=== PATIENT | male | born 1965 | race Caucasian/White ===

== ENCOUNTER → 2020-02-22 08:43 | Outpatient (BNVA) | payer BC, SELFPAY | PROVIDERS: PCP Nurse Practitioner Family; Visit Provider Urology | DX: N40.1 Benign prostatic hyperplasia with lower urinary tract symptoms; R30.0 Dysuria; R97.20 Elevated prostate specific antigen [PSA]; R39.12 Poor urinary stream; R39.11 Hesitancy of micturition | CPT/HCPCS: 81001; 84153 ==

== ENCOUNTER → 2020-09-13 11:34 | Outpatient (BNVA) | payer BC, SELFPAY | PROVIDERS: PCP Nurse Practitioner Family; Visit Provider Urology | DX: N40.1 Benign prostatic hyperplasia with lower urinary tract symptoms (principal); R31.29 Other microscopic hematuria | CPT/HCPCS: 81003; 87086 ==

== ENCOUNTER → 2021-01-02 14:00 | Outpatient (BNVA) | payer BC, SELFPAY | PROVIDERS: PCP Nurse Practitioner Family; Visit Provider Urology | DX: R31.29 Other microscopic hematuria (principal); N40.1 Benign prostatic hyperplasia with lower urinary tract symptoms; N30.20 Other chronic cystitis without hematuria; R33.9 Retention of urine, unspecified; R39.11 Hesitancy of micturition | CPT/HCPCS: 81003; 87086 ==

== ENCOUNTER → 2021-04-03 11:02 | Outpatient (BNVA) | payer BC, SELFPAY | PROVIDERS: PCP Nurse Practitioner Family; Visit Provider Urology | DX: N40.1 Benign prostatic hyperplasia with lower urinary tract symptoms (principal); N52.9 Male erectile dysfunction, unspecified; N30.20 Other chronic cystitis without hematuria; R39.11 Hesitancy of micturition | CPT/HCPCS: 81003 ==

== ENCOUNTER → 2021-10-30 10:52 | Outpatient (BNVA) | payer BC, SELFPAY | PROVIDERS: PCP Nurse Practitioner Family; Referring Provider Nurse Practitioner Family; Visit Provider Orthopaedic Surgery | DX: M19.011 Primary osteoarthritis, right shoulder (principal); M25.511 Pain in right shoulder | CPT/HCPCS: 73030 ==

== ENCOUNTER → 2022-03-25 07:55 | Outpatient (BNVA) | payer BC, SELFPAY | PROVIDERS: PCP Nurse Practitioner Family; Visit Provider Urology | DX: N40.1 Benign prostatic hyperplasia with lower urinary tract symptoms (principal); N52.9 Male erectile dysfunction, unspecified; N30.20 Other chronic cystitis without hematuria; R31.29 Other microscopic hematuria; R39.11 Hesitancy of micturition | CPT/HCPCS: 81003 ==

== ENCOUNTER 2022-04-10 14:14 | Observation (INO) | payer BC, SELFPAY ==
[2022-04-05 11:16] VITALS: BMI 32.8
--- NOTE | 2022-04-05 11:52 | ANES.PREANE2 ---
Pre-Anesthetic Assessment Height/Weight: Height 1.8 m Weight 106.594 kg Preop Diagnosis: BPH Operation Date: 04/10/22 08:05 Proposed Procedures p Transurethral Resection Of Prostate(Not Applicable) - Jed Carrington MD s cystoscopy transurethral resection of prostate 89636,N40.1(Not Applicable) - Jed Carrington MD Familial anesthetic complications: None Was Beta Lilia taken within 24 hours: N/A Was Clonidine taken within 24 hours: N/A Social Tobacco and No alcohol Exam alert, oriented x 3, clear to auscultation bilaterally and regular rate & rhythm Airway Submandibular: within normal limits Cervical ROM: within normal limits Mallampati: Class II Dentition: chipped (Chipped upper teeth ) Pulmonary Asthma CV/HEM Denies HTN, CAD, afib/aflutter, blood thinners METS > 4 able to chop and stack wood BPH Hepatic None reported GI None reported Metabolic None reported Musc/skel Osteoarthritis/DJD Neuropsych None reported Anesthetic Plan ASA status: 3 Anesthesia: Anesthesia Evaluation and General Other: We discussed risk and benefits of general anesthesia including PONV, sore throat (sometimes severe), corneal abrasion, positioning and peripheral nerve injuries, life threatening allergic reaction, post operative ICU admission requiring prolonged intubation, aspiration, stroke, heart attack, , and rare incidences of recall. Patient consents to proceed with general anesthesia. Risk of > 500 ml blood loss (7ml/kg in children): No Medications/Allergies Home Medications Medication Instructions Recorded Confirmed Last Taken Type albuterol sulfate 90 mcg/actuation 2 inh inhalation QID PRN sob 02/16/20 04/05/22 Unknown History breath activated powder inhaler sildenafil 100 mg tablet See Rx Instructions .Route 04/03/21 04/05/22 Unknown Rx .COMPLEX sexual activity #20 tabs finasteride 5 mg tablet 5 mg PO QDAY #90 tabs 02/28/22 04/05/22 Unknown Rx tamsulosin 0.4 mg capsule 0.4 mg PO BID #180 caps 03/07/22 04/05/22 Unknown Rx tadalafil 20 mg tablet (Cialis) 20 mg PO .prn #20 tabs 03/28/22 04/05/22 Unknown Rx Allergies Allergy/AdvReac Type Severity Reaction Status Date / Time No Known Allergies Allergy Verified 04/05/22 11:14 PFSH Anesthesia Medical History Asthma BPH loc w urin obs/LUTS Erectile dysfunction Microscopic hematuria Urinary hesitancy Surgical History History of back surgery Hx of arthroscopic knee surgery Hx of hernia repair Hx of rotator cuff surgery Family History Mother Cancer BREAST CANCER Father , at age 52 CAD (coronary artery disease) Social History Smoking and tobacco status: current every day smoker Alcohol intake: current Alcohol intake frequency: holidays/special occasions only Adopted: No Caregiver/support person: No Lives independently: Yes Marital status: / Current occupational status: employed History of recent travel: No Data Anesthesia Cardiac Studies: No Data to Display
[2022-04-10] VITALS (21 sets, daily range): BP systolic 100–136; BP diastolic 55–78; PULSE 62–82; RESP 12–18; TEMP 36.2–36.8; O2SAT 93–98
--- NOTE | 2022-04-10 05:52 | W.PM.OPSUD ---
Surgery/Procedure H&P Update DATE OF PROCEDURE: April 10, 2022 DATE H&P PERFORMED: 03/21/22 H&P UPDATE INFORMATION: I have reviewed H&P completed within last 30 days, I have examined patient prior to procedure, No changes to prior documentation and H&P is in [facility] [place] [facility] EMR on date indicated PREOP DIAGNOSIS: BPH PLANNED PROCEDURE: Operation Date: 04/10/22 08:05 Proposed Procedures p Transurethral Resection Of Prostate(Not Applicable) - Jed Carrington MD s cystoscopy transurethral resection of prostate 13814,N40.1(Not Applicable) - Jed Carrington MD
--- NOTE | 2022-04-10 07:09 | P.ANESUD_ITS ---
Pre-Anesthetic Update Pre-Anesthetic Assessment: Date of Surgery/Procedure: 04/10/22 Preop Mena gnosis: BPH with obstruction Proposed Procedure: Operation Date: 04/10/22 08:05 Proposed Procedures p Transurethral Resection Of Prostate(Not Applicable) - Jed Carrington MD s cystoscopy transurethral resection of prostate 60603,N40.1(Not Applicable) - Jed Carrington MD Any changes to Pre-Anesthetic Assessment?: No Last Intake: Intake Last Liquid Date 04/09/22 Last Liquid Time 22:30 Last Solid Date 04/09/22 Last Solid Time 22:30 Vitals: Temperature 97.2 F L 04/10/22 06:43 Temperature Source Temporal Artery S can 04/10/22 06:43 Pulse Rate 66 04/10/22 06:43 Respiratory Rate 16 04/10/22 06:43 Blood Pressure 135/76 04/10/22 06:43 Blood Pressure Fide n 95 04/10/22 06:43 Pulse Oximetry 95 04/10/22 06:43 Oxygen Delivery Me thod 04/10/22 07:06 Exam: Pre-Anes Outpt Exam: alert, oriented x 3, clear to auscultation bilaterally and regular rate & rhythm Cardiac Studies: No Data to Display
[2022-04-10] MEDS: sodium chloride 0.9% 1,000 ML 30 ML IV (07:10)
[2022-04-10 07:14] LABS: Basophils % 0.4 %; Eosinophils # 0.1 10^3/uL (0.0-0.8); Eosinophils % 1.5 %; Hematocrit 44.8 % (42.0-52.0); Lymphocytes % 24.4 %; Mean Corpuscular HGB Conc 33.5 g/dL (30.0-36.0); Mean Corpuscular Hemoglobin 33.5 pg (28.0-34.0); Mean Platelet Volume 8.8 fL (7.4-10.4); Monocytes # 0.7 10^3/uL (0.2-0.9); Monocytes % 8.1 %; Neutrophils # 5.41 10^3/uL (1.8-7.7); Neutrophils % 65.5 %; Nucleated Red Blood Cells % 0 %; Platelet Count 284 10^3/cmm (130-400); Red Blood Count 4.48 10^6/uL (4.1-5.3); Red Cell Distribution Width 13.8 % (12.1-15.1); White Blood Count 8.3 10^3/uL (4.0-10.0)
[2022-04-10] MEDS: levofloxacin-dextrose 5 % 500 MG/100 ML PREMIX 100 MG IV (08:42)
--- NOTE | 2022-04-10 11:00 | PM.OP ---
Operative Report Date of procedure: April 10, 2022 Pre-op diagnosis: BPH with obstruction Post-op diagnosis: BPH with obstruction Procedure done: 1. Cystoscopy, transurethral vaporization/resection prostate gland Specimens removed/disposition: Prostate chips, tax compliance representative sampling Pathology: Prostate chips, tax compliance representative sampling Surgeon: Zeb Estimated blood loss: Minimal Urine output: Not measured Complications: None Findings: Anesthesia: General Condition: Stable Disposition: PACU Intraoperative findings: Trilobar enlargement of the prostate. Large capacity bladder with large right posterior diverticulum Evidence of chronic cystitis with some cystica changes. Will need discharge on antibiotics. Brief History: Milan is a very pleasant 56-year-old white male with progressive longstanding bladder outlet obstructive symptoms with trabeculation of the bladder and a large posterior diverticulum noted on cystoscopy along with trilobar enlargement of the prostate with intravesical protrusion. He had been on maximal medical therapy with some improvement but not durable. He ultimately elected to proceed with surgical intervention. Procedure: After routine preoperative evaluation examination and obtaining of informed consent he was taken to the operating suite on 04/10/2022 where general anesthesia was administered without difficulty after appropriate timeout was performed, SCDs confirmed to be functioning, preoperative antibiotics administered, beta-juan pablo protocol confirmed. Prepped and draped in usual sterile fashion in dorsolithotomy position paying careful attention to avoiding pressure points. 21 Kazakh cystoscope with 30 degree lens was introduced into the urethra meatus and advanced into the bladder under videoscopy. Bladder was systematically examined. He had a large posterior diverticulum more to the right. Moderately trabeculated bladder and some signs of CYSTITIS CYSTICA. His urine looked cloudy. The urethra was then dilated with [place] sounds but there was a small false passage that occurred with passage of the first sound and so at that point calibration was conducted with the 23 then 25 Kazakh cystoscope under direct vision avoiding the small anterior false passage from the sound in the bulbar urethra. There was plenty of leeway passing the cystoscopes. The distal urethra, distal to the false passage was calibrated with [place] sounds and easily accommodated 30 Kazakh. 2% lidocaine jelly was instilled into the urethra than the 25 Kazakh continuous-flow resectoscope sheath with visual obturator in place was easily advanced into the bladder. The gyrus bipolar system was utilized for fulguration and resection. Initially the button probe was utilized for vaporization. The orifices were confirmed to be well away from the bladder neck and circumferential vaporization of the bladder neck was conducted and then extended on both lateral lobes, anteriorly, and posteriorly out to but not distal to the verumontanum. Approximately 60 to 70% of the tissue was vaporized. The super loop was then utilized to complete resection. Care was made to avoid strain distally to the verumontanum and staying well away from both orifices which was confirmed at the completion procedure. The chips were all evacuated from the bladder. Some of the chips had migrated into the diverticulum and this was confirmed to be clear at the completion. Hemostasis was visually confirmed with the irrigation off. The scope was removed. There a false passage was oozing but not severely. A 20 Kazakh three-way Albarado catheter with 30 cc placed in the balloon was easily advanced into the bladder with good function. Balloon was inflated placed to light irrigation. He did have some oozing from around the catheter which was expected given the false passage but I fully anticipate this to cease with conservative management/tamponade from the catheter. He tolerated the procedure well. Was awakened in the operating room and returned to the recovery room in stable condition. PLANS: 1. Will admit to observation status. 2. Plan to keep the catheter in and discharge to allow further healing of the urethra before removal.
--- NOTE | 2022-04-10 12:07 | SUR.PHASEII ---
1200 PT AWAKE ALERT TALKATIVE TAKING COFFEE AND CRACKERS, PT REQUEST PAIN MED FOR PAIN TO URETHRAL AREA OF 3/10 SEE MED ORDERED FOR FLOOR. CBI IN FUSING SLOWLY, URINE CLEAR.
--- NOTE | 2022-04-10 12:11 | SUR.PHASEII ---
PT AWAKE TALKATIVE, WAITING ON PHARMACY FOR PAIN MED PT DRINKING COFFEE , SR UP X 2 BED LOCKED AND CALL LIGHT WITHIN REACH.
[2022-04-10] MEDS: HYDROcodone-acetaminophen 5-325 mg Tablet 1 TAB PO (12:15)
--- NOTE | 2022-04-10 12:36 | SUR.PHASEII ---
NEW CBI BAG UP PT REQUESTS TO GET UP TO BSC , PT CARE ASSUMED BY Vianca THOMAS RN.
--- NOTE | 2022-04-10 13:51 | ANE.PACU2 ---
Inpatient post-anesthesia follow up: Airway intact: Yes Vital signs: Temperature 98.2 F Pulse Rate 68 Respiratory Rate 18 Blood Pressure 136/74 Pulse Oximetry 98 Oxygen Delivery Me thod Room Air Oxygen Flow Rate Fraction of Inspir ed Oxygen Hydration adequate: Yes Nausea and vomiting: No Pain level: 1 Mental status: Baseline
[2022-04-10] MEDS: dextrose 5%-ns + KCl 20 20 MEQ/1,000 ML BAG 100 MEQ IV (14:55)
[2022-04-10] MEDS: tamsulosin 0.4 mg Capsule PO (18:10)
[2022-04-10] MEDS: docusate sodium 100 mg Capsule PO (18:10)
--- NOTE | 2022-04-10 18:14 | PC.NURSE ---
PATIENT HAS DONE WELL SINCE ARRIVING FROM THE OR. BLOOD OOZING FROM PATIENT'S PENIS HAS DECREASED GREATLY. CBI RUNNING AT A VERY SLOW DRIP. PATIENT HAS HAD 1500ML OF CBI AND 2000ML OF CLEAR YELLOW OUTPUT. 500ML TOTAL OF URINE OUTPUT. NO DISTENTION NOTED. PATIENT HAS NO COMPLAINTS OF PAIN. CURRENTLY RESTING IN BED TALKING ON THE PHONE.
[2022-04-11] VITALS: BP 120/67; PULSE 72; RESP 18; TEMP 36.5; O2SAT 94
[2022-04-11] MEDS: famotidine 20 mg Tablet PO (00:14)
--- NOTE | 2022-04-11 00:42 | PC.NURSE ---
Patient stated that stomach was upset and requested antacid. Order given by Dr Medeiros for PO pepcid. Patient took pepcid, but afterward administration stated, I want a real antacid, not a PPI. I want it to work now, not tomorrow. Dr. Medeiros contacted about patient request for antacid, response was wait. Patient stated, All I want is a damn antacid.
[2022-04-11] MEDS: dextrose 5%-ns + KCl 20 20 MEQ/1,000 ML BAG 100 MEQ IV (01:35)
[2022-04-11 04:00] VITALS: BP 91/50; PULSE 56; RESP 16; TEMP 36.6; O2SAT 94
--- NOTE | 2022-04-11 05:49 | PM.DCS ---
Discharge Providers Date of Admission: 04/10/22 14:14 Date of Discharge: April 11, 2022 Attending Provider at Admission: Jed Carrington MD Attending Provider at Discharge: Jed Carrington MD Consults: None Primary Care Provider: Cody Carolina NP Diagnoses at Discharge Discharge Diagnosis (1) BPH loc w urin obs/LUTS: Status: Acute (2) Chronic cystitis: Status: Acute Reason for Visit Reason for Visit: benign prostatic hyperplasia w/lower urinary tract Brief History: Longstanding progressive bladder outlet obstructive symptoms with failure of medical management alone. Ultimately patient chose surgical intervention with hopes of substantial improvement in voiding. Hospital Course Hospital Course Admitted on the day of the procedure which went well. He had a large prostate. Prostatic fossa was wide open at the completion procedure. Did have some changes of CHRONIC CYSTITIS evident on bladder wall for that reason was maintained on antibiotics throughout his hospital stay. Intraoperatively he had mild urethral dilation trauma at that reason it was decided to leave the Albarado catheter in until 04/15/2022 for voiding trial in my office. He was discharged with Albarado catheter in place with leg bag. Discharge condition was stable. We reviewed perioperative limitations and expectations. Encouraged him to stay off work for least a week or 2. Physical Exam Narrative: Alert oriented no acute distress No labored respirations Abdomen is soft. Urine is clear. No further periurethral catheter bleeding Genital exam normal. Urinary Catheter Management: 3-way Urethral CBI: Cath Placed During This Visit: yes Reason for Continuing Indwelling Catheter: Acute Urinary Retention or Obstruction Urinary Catheter Date of Insertion: 04/10/22 Urinary Catheter Time of Insertion: 09:42 Discharge Data Studies Completed and Pending Pending at discharge Category Date Time Status Pathology: Surgical [PTH] Routine Pth 04/10/22 09:59 Received Laboratory Results WBC 8.3 10^3/uL (4.0-10.0) 04/10/22 07:02 RBC 4.48 10^6/uL (4.1-5.3) 04/10/22 07:02 Hgb 15.0 g/dL (11.7-16.6) 04/10/22 07:02 Hct 44.8 % (42.0-52.0) 04/10/22 07:02 MCV 100.0 fl (80-94) H 04/10/22 07:02 MCH 33.5 pg (28.0-34.0) 04/10/22 07:02 MCHC 33.5 g/dL (30.0-36.0) 04/10/22 07:02 RDW 13.8 % (12.1-15.1) 04/10/22 07:02 Plt Count 284 10^3/cmm (130-400) 04/10/22 07:02 MPV 8.8 fL (7.4-10.4) 04/10/22 07:02 Neut % (Auto) 65.5 % 04/10/22 07:02 Lymph % (Auto) 24.4 % 04/10/22 07:02 Cassia % (Auto) 8.1 % 04/10/22 07:02 Eos % (Auto) 1.5 % 04/10/22 07:02 Baso % (Auto) 0.4 % 04/10/22 07:02 Neut # (Auto) 5.41 10^3/uL (1.8-7.7) 04/10/22 07:02 Lymph # (Auto) 2.0 10^3/uL (0.8-4.8) 04/10/22 07:02 Cassia # (Auto) 0.7 10^3/uL (0.2-0.9) 04/10/22 07:02 Eos # (Auto) 0.1 10^3/uL (0.0-0.8) 04/10/22 07:02 Baso # (Auto) 0.0 10^3/uL (0.0-0.1) 04/10/22 07:02 Nucleated RBC % (auto) 0 % 04/10/22 07:02 Nucleated RBCs # 0.0 /100WBC 04/10/22 07:02 Sodium Cancelled 04/10/22 07:02 Potassium Cancelled 04/10/22 07:02 Chloride Cancelled 04/10/22 07:02 Carbon Dioxide Cancelled 04/10/22 07:02 Anion Gap Cancelled 04/10/22 07:02 BUN Cancelled 04/10/22 07:02 Creatinine Cancelled 04/10/22 07:02 GFR Calculation Cancelled 04/10/22 07:02 Glucose Cancelled 04/10/22 07:02 Calculated Osmolality Cancelled 04/10/22 07:02 Calcium Cancelled 04/10/22 07:02 Total Bilirubin Cancelled 04/10/22 07:02 AST Cancelled 04/10/22 07:02 ALT Cancelled 04/10/22 07:02 Alkaline Phosphatase Cancelled 04/10/22 07:02 Total Protein Cancelled 04/10/22 07:02 Albumin Cancelled 04/10/22 07:02 Globulin Cancelled 04/10/22 07:02 Procedures Performed Cystoscopy, transurethral section/vaporization of prostate. Vitals Last Vital Signs Temp 97.9 F 04/11/22 04:00 Pulse 56 L 04/11/22 04:00 Resp 16 04/11/22 04:00 BP 91/50 04/11/22 04:00 Pulse Ox 94 04/11/22 04:00 O2 Del Method 04/11/22 04:00 Discharge Plan Discharge Patient Disposition: Home Condition: Stable Prescriptions: New levofloxacin 500 mg tablet 500 mg PO DAILY Qty: 10 0RF Continued albuterol sulfate 90 mcg/actuation aerosol powdr breath activated 2 inh INHALATION QID PRN (Reason: sob) finasteride 5 mg tablet 5 mg PO QDAY Qty: 90 3RF tamsulosin 0.4 mg capsule 0.4 mg PO BID Qty: 180 3RF tadalafil [Cialis] 20 mg tablet 20 mg PO .prn Qty: 20 12RF Rx Instructions: take one tablet 1 hour before intercourse NO NITROGLYCERIN Discharge Orders: Discharge Order (Routine); Ordered 04/11/22 Ordered By: Jed Carrington Referrals: Jed Carrington MD [Physician] - 04/15/22 (voiding trial no SCIC planned) Discharge Diet: Usual diet Discharge Activity: Limit activity as instructed Activity Restrictions/Additional Instructions: 1. We will discharged with Albarado catheter in place and remove it on Friday the in my office. 2. This will allow more healing prior to voiding trial. 3. For the short-term continue the FINASTERIDE and tamsulosin as we discussed. 4. There was evidence of an infection in your bladder and for that reason you will be discharged on an antibiotic for about 10 days. Discharge Attestations Time Spent in Discharge Care*: less than 30 min Quality Metrics Clinical Quality Measures [ No reported AMI, CVA or VTE this stay] Coding Level of Care Code Acute Chg FW DC note Diagnoses BPH loc w urin obs/LUTS N40.1 Chronic cystitis N30.20
[2022-04-11] MEDS: levoFLOXacin 500 mg Tablet PO (07:13)
[2022-04-11 07:29] VITALS: BP 107/63; PULSE 69; RESP 16; TEMP 36.7; O2SAT 94
[2022-04-11] MEDS: docusate sodium 100 mg Capsule PO (08:08)
[2022-04-11] MEDS: tamsulosin 0.4 mg Capsule PO (08:08)
[2022-04-11] MEDS: finasteride 5 mg Tablet PO (08:08)
[2022-04-11 10:57] VITALS: BP 107/63; PULSE 69; RESP 16; TEMP 36.7; O2SAT 94
== END 2022-04-11 10:00 | disposition home or self-care (01) ==
LOC: MEDSURG 14:14
PROVIDERS: Admitting Provider Urology; PCP Nurse Practitioner Family; Visit Provider Urology
PROC: 0VT08ZZ Resection of Prostate, Via Natural or Artificial Opening Endoscopic (ICD-10-PCS; CPT 52601; principal; 2022-04-10 07:55)
PROC: 0TJB8ZZ Inspection of Bladder, Via Natural or Artificial Opening Endoscopic (ICD-10-PCS; CPT 52000; 2022-04-10 07:55)
DX: N40.1 Benign prostatic hyperplasia with lower urinary tract symptoms (principal); N13.8 Other obstructive and reflux uropathy; N30.20 Other chronic cystitis without hematuria; F17.210 Nicotine dependence, cigarettes, uncomplicated
CPT/HCPCS: 52601; 85025; 88305; G0378; J0330; J1100; J1170; J1956; J2250; J2405; J2704; J3010; J3490; J7030

== ENCOUNTER → 2022-05-20 13:43 | Outpatient (BNVA) | payer BC, SELFPAY | PROVIDERS: PCP Nurse Practitioner Family; Visit Provider Urology | DX: N40.1 Benign prostatic hyperplasia with lower urinary tract symptoms (principal); N30.20 Other chronic cystitis without hematuria; N52.9 Male erectile dysfunction, unspecified | CPT/HCPCS: 81003; 87077; 87086; 87186 ==

== ENCOUNTER 2024-01-02 13:04 | Emergency (ER) | payer BC, SELFPAY ==
[2024-01-02 13:19] VITALS: BP 131/79; PULSE 78; RESP 18; TEMP 36.6; O2SAT 95; BMI 34.8
--- NOTE | 2024-01-02 13:29 | XRR_ITS ---
PROCEDURE INFORMATION: Exam: XR Right Shoulder Exam date and time: 01/02/2024 1:33 PM Age: 58 years old Clinical indication: Injury or trauma; Fall; Blunt trauma (contusions or hematomas); Shoulder; Right TECHNIQUE: Imaging protocol: Radiologic exam of the right shoulder. Views: 2 or more views. COMPARISON: CR XR shoulder RT min 2V* [id number] 10/30/2021 10:56 AM FINDINGS: Bones/joints: Moderate/severe osteoarthritis glenohumeral and acromioclavicular joint with ancillary evidence favoring chronic rotator cuff injury. No acute fracture/dislocation. Soft tissues: Normal. XR/XR shoulder RT min 2V* [id number] IMPRESSION: No acute findings.
--- NOTE | 2024-01-02 13:29 | XRR_ITS ---
PROCEDURE INFORMATION: Exam: XR Right Humerus Exam date and time: 01/02/2024 1:33 PM Age: 58 years old Clinical indication: Injury or trauma; Fall; Blunt trauma (contusions or hematomas); Arm, upper; Right TECHNIQUE: Imaging protocol: Radiologic exam of the right humerus. Views: 2 or more views. COMPARISON: CR XR shoulder RT min 2V* [id number] 01/02/2024 1:33 PM FINDINGS: Bones/joints: Moderate to severe osteoarthritis acromioclavicular and glenohumeral joints with additional chronic rotator cuff injury. Moderate osteoarthritis elbow joint with a large olecranon osteophyte. No acute fracture/dislocation. Soft tissues: Chronic soft tissue calcification dorsal forearm. No acute soft tissue findings. XR/[place] [id number] IMPRESSION: No acute findings.
--- NOTE | 2024-01-02 14:40 | W.ED.UPPEXIN ---
HPI - Extremity Injury (Upper) General: Chief Complaint: Extremity Injury, Upper Stated Complaint: right arm pain pulled muscle Time Seen by Provider: 01/02/24 14:32 Source: patient Mode of arrival: ambulatory Limitations: no limitations History of Present Illness: Patient is a 58-year-old male presents to ED today for evaluation of a right bicep injury that he sustained yesterday after his large brother accidentally fell onto him causing him to land onto his outstretched arm. Patient reportedly heard a pop and since then has noticed swelling surrounding his right bicep. He states the muscle does not seem to be working right . MD complaint: injury to: right and arm Onset (ago): day(s) (yesterday) Other Extremity Injury: Right: arm Other injuries: none Handedness: right Place: home Severity: moderate Relieving factors: immobilization Exacerbating factors: movement of extremity Context: fall Associated symptoms: Reports no associated symptoms Review of Systems Musc: Reports: extremity pain and extremity swelling; Denies: joint pain or joint swelling Neuro: Denies: numbness in extremities or sensory changes PFSH ED PFSH: Medical History Erectile dysfunction Microscopic hematuria Asthma Urinary hesitancy BPH loc w urin obs/LUTS Surgical History S/P TURP March 2022 History of back surgery Hx of rotator cuff surgery Hx of arthroscopic knee surgery Hx of hernia repair Family History Mother Cancer BREAST CANCER Father , at age 52 CAD (coronary artery disease) Social History Smoking and tobacco/nicotine status: current every day tobacco/nicotine user Alcohol intake: current Alcohol intake frequency: holidays/special occasions only Substance/Drug Use: unknown Adopted: No Caregiver/support person: No Lives independently: Yes Marital status: / Current occupational status: employed Physical Exam Const: COMMON NORMALS: no acute distress, patient oriented x3, no limitations, healthy appearing, alert and well nourished Extremity: COMMON NORMALS: capillary refill normal and no clubbing, cyanosis or edema GENERAL: Yes normal exam except as noted RIGHT UPPER EXTREMITY: Yes shoulder joint (normal) Right shoulder: Yes Right shoulder joint neurovascular exam (normal) and Yes upper arm (edema/ecchymosis overlying R bicep muscle) Right upper arm: Yes palpation (TTP distal bicep tendon) and Yes neurovascular exam (normal) Neuro: COMMON NORMALS: patient oriented x3, moves all extremities, no focal motor deficits and no sensory deficits noted SENSORIUM/ORIENTATION: Yes alert Course Vital Signs: Vital signs: Vital Signs Temperature 97.9 F 01/02/24 13:19 Pulse Rate 78 01/02/24 13:19 Respiratory Rate 18 01/02/24 13:19 Blood Pressure 131/79 01/02/24 13:19 Pulse Oximetry 95 01/02/24 13:19 Oxygen Delivery Me thod Room Air 01/02/24 13:19 MDM - Extremity Injury (Upper) Medical Decision Making XRs ordered from triage negative. Concern for bicep rupture based on history/clinical exam. Will refer to ortho. Medical Records I reviewed the patient's medical records. Lab Data Radiology Impressions Humerus X-Ray 01/02/24 13:29 IMPRESSION: No acute findings. Shoulder X-Ray 01/02/24 13:29 IMPRESSION: No acute findings. All radiology interpretation(s) finalized by discharge Discharge Plan Discharge Patient Disposition: Home Clinical Impression: Rupture of right biceps tendon Qualifiers: Encounter type: initial encounter Qualified Code(s): S46.211A - Strain of muscle, fascia and tendon of other parts of biceps, right arm, initial encounter Condition: Stable Prescriptions: No Action albuterol sulfate 90 mcg/actuation aerosol powdr breath activated 2 inh INHALATION QID PRN (Reason: sob) hydrocodone-acetaminophen 5-325 mg tablet 1 tab PO Q8H PRN (Reason: pain) 5 Days Qty: 15 0RF finasteride 5 mg tablet 5 mg PO QDAY Qty: 90 3RF tadalafil [Cialis] 20 mg tablet 20 mg PO .prn Qty: 20 12RF Rx Instructions: take one tablet 1 hour before intercourse NO NITROGLYCERIN methenamine hippurate 1 gram tablet 1 g PO BID Qty: 180 3RF Discharge Orders: Discharge ED (Routine); Ordered 01/02/24 Ordered By: Ana Henriquez Referrals: Cody Carolina NP [Primary Care Provider] - Patient Instructions: Biceps Tendon Rupture Activity Restrictions/Additional Instructions: As we discussed case management should reach out to you later today/early next week to help set you up with your follow-up orthopedic appointment for further evaluation. Coding Level of Care Code ED Treasury Consultant for Ariadne Crawford
[2024-01-02 15:15] VITALS: PULSE 76; RESP 16; O2SAT 97
--- NOTE | 2024-01-05 09:23 | DCPLANNER ---
Message sent to Ortho for follow up on Possible bicep rupture-
== END 2024-01-02 15:15 | disposition home or self-care (01) ==
PROVIDERS: Emergency Provider Physician Assistant; PCP Nurse Practitioner Family
DX: S46.211A Strain of muscle, fascia and tendon of other parts of biceps, right arm, initial encounter (principal); J45.909 Unspecified asthma, uncomplicated; F17.210 Nicotine dependence, cigarettes, uncomplicated; Z79.899 Other long term (current) drug therapy; W19.XXXA Unspecified fall, initial encounter
CPT/HCPCS: 73030; 73060; 99283

== ENCOUNTER 2024-01-26 09:49 | Outpatient (CLI) | payer BC, SELFPAY ==
--- NOTE | 2024-01-26 11:00 | MR_ITS ---
WS: [id number] MRI RIGHT SHOULDER HISTORY: right shoulder bicep tendon rupture/rotator cuff injury COMPARISON: 01/23/2013 TECHNIQUE: Multiplanar sequences of the shoulder joint are submitted. Micrometallic artifacts are noted throughout the soft tissues of the RIGHT shoulder from prior repair . Moderate AC joint arthritis. Narrowing of the AC joint with edema in the capsule and mild encroachmen t upon the supraspinatus muscle and tendon. Mild downsloping of the acromion. Osteophyte along the in ferior surface of the acromion contacting the supraspinatus. No os acromion. Biceps tendon is not екатерина ntified in the bicipital groove. Biceps tendon was present in the bicipital groove on 08/26/2012. Ther e does appear to be at least subluxation of the tendon. Moderate osteophytic ridging of the humeral head and glenoid. Moderate size joint effusion surroundin g the humeral head extending into the axillary recess. Mild subscapularis and supraspinatus atrophy w ith a small amount of edema. There is a large fluid gap in the supraspinatus tendon directly over the humeral head consistent with a tear. The distal tendon is identified is very thin caliber with thinning. Fissuring along the burs al and articular surfaces of the tendon. Subscapularis tendon is not identified distally. There is ma rked narrowing of the coracohumeral interval. Tendon appears retracted. Infraspinatus tendon is intac t. Teres minor is intact. Small subcortical cyst in the posterior glenoid near the labrum. No definite labral tears. There is d egeneration within the labrum. MR/MR shoulder RT wo con* [id number] IMPRESSION: 1. Moderate AC joint arthritis with encroachment upon the supraspinatus. 2. Biceps tendon is no longer present in the bicipital groove. There is sublux ation of the biceps tendon. 3. Osteophytic ridging surrounding the humeral head and glenoid. 4. Moderate size fluid gap supraspinatus tendon directly over the humeral head . Consistent with a full-thickness tear. The distal tendon is thinned with surf david fraying and irregularity. 5. Complete tear subscapularis tendon with retraction. Marked narrowing of the coracohumeral interval. The subscapularis tendon is not identified in the jazmyne cohumeral interval. 6. Mild supraspinatus and subscapularis atrophy. 7. Prior shoulder surgery. Numerous micrometallic artifacts are noted from the prior surgery.
== END 2024-01-26 09:50 | disposition home or self-care (01) ==
LOC: RAD 09:51
PROVIDERS: PCP Nurse Practitioner Family; Visit Provider Student in an Organized Health Care Education/Training Program
DX: S46.011A Strain of muscle(s) and tendon(s) of the rotator cuff of right shoulder, initial encounter (principal); M19.011 Primary osteoarthritis, right shoulder; M25.711 Osteophyte, right shoulder; M85.611 Other cyst of bone, right shoulder
CPT/HCPCS: 73221

== ENCOUNTER 2024-11-05 11:46 | Outpatient (CLI) | payer OTHER, SELFPAY ==
--- NOTE | 2024-11-05 11:48 | CT_ITS ---
WS: [id number] LDCT LUNG CANCER SCREENING TECHNIQUE: Noncontrast CT of the chest with coronal and sagittal reformatted images. CLINICAL INFORMATION: NICOTINE DEPENDENCE,CIGARETTES COMPARISON: None. DLP: 123.47 mGy.cm DIvol: Mean CTDIvol: 2.50 (mGy) All CT scans at [facility] use at least one of these dose optimization techniques: automated exposure control; mA and/or kV adjustment per patient size (includes targeted exams where dose is matched to clinical indication); or iterative reconstruction. FINDINGS: A few small subcentimeter nodules in the upper lobes. 4 mm nodule RIGHT lower lobe along the diaphragm. Normal caliber thoracic aorta. No mediastinal or hilar lymphadenopathy. No axillary lymphadenopathy. Adrenal glands are normal. Ankylosis thoracic spine. CT/CT lung screening [id number] IMPRESSION: LUNG-RADS: 2-Benign Appearance or Behavior FOLLOW UP: 12 Month: Continue annual screening with LDCT
== END 2024-11-05 11:47 | disposition home or self-care (01) ==
PROVIDERS: PCP Nurse Practitioner Family; Visit Provider Family Medicine
DX: Z12.2 Encounter for screening for malignant neoplasm of respiratory organs (principal); F17.210 Nicotine dependence, cigarettes, uncomplicated; R91.8 Other nonspecific abnormal finding of lung field; M43.24 Fusion of spine, thoracic region
CPT/HCPCS: 71271

== ENCOUNTER → 2025-03-29 13:32 | Outpatient (BNVA) | payer BC, SELFPAY | PROVIDERS: PCP Nurse Practitioner Family; Visit Provider Podiatrist Foot & Ankle Surgery | DX: M76.62 Achilles tendinitis, left leg (principal) | CPT/HCPCS: 73610 ==

== ENCOUNTER 2025-04-13 08:53 | Outpatient (RCR) | payer BC, SELFPAY | END 2025-04-29 23:59 | disposition home or self-care (01) | LOC: SPT 08:53 | PROVIDERS: Visit Provider Podiatrist Foot & Ankle Surgery | DX: M76.62 Achilles tendinitis, left leg (principal) | CPT/HCPCS: 97110; 97140; 97161 ==

== ENCOUNTER 2025-05-17 09:25 | Outpatient (CLI) | payer BC, SELFPAY ==
--- NOTE | 2025-05-17 09:30 | MR_ITS ---
WS: [id number] MRI LEFT ANKLE WITHOUT CONTRAST. COMPARISON: Radiograph 03/29/2025 Multiplanar, multisequence imaging is performed without contrast. History: Painful bone spur. Degenerative enthesopathies are noted at the origin of the plantar fascia and at the insertion of the Achilles tendon. Plantar fascial aponeurosis spur measures 7.6 mm. Distal Achilles insertion site enthesopathy measures 11 mm. No significant fluid or thickening of the plantar fascia. No edema along the plantar calcaneus. Mild thickening of the distal Achilles tendon near the insertion site of the calcaneus. There is a split tear centrally in the distal Achilles tendon. There is additional tendinopathy and fluid surrounding the tendon. Small amount of fluid in the retrocalcaneal bursa. There is edema in the posterior calcaneus. No significant Yvonne deformity. Large os trigonum. Osteochondral defect in the lateral talar dome measures 4.2 mm. Moderate narrowing of the tibiotalar joint. There is a small amount of edema in the distal fibula. Peroneal tendons are intact. Intermediate signal in the peroneal brevis but no obvious full-thickness tear. The posterior tibialis tendon, flexor hallucis longus and flexor digitorum longus tendons are intact. Anterior tibialis tendon is normal. No widening of the interosseous distance. Anterior and posterior tibiofibular ligaments are intact. Small caliber anterior talofibular ligament. Posterior talofibular ligament is normal. Degenerative changes in the midfoot. Narrowing of the intertarsal articulations and osteophytes. There is a small amount of edema in the intermediate and lateral cuneiforms. There is a small cyst in the sinus Tarsi. Small caliber calcaneofibular ligament. Intermediate signal in the tibiospring ligament. MR/MR ankle LT wo con* [id number] IMPRESSION: 1. Plantar fascia enthesopathy at the origin measures 7.6 mm. No evidence for acute plantar fasciitis. 2. Enthesopathy at the distal Achilles tendon measures 11 mm with a adjacent e nthesitis. 3. Split tear in the distal Achilles tendon and adjacent tendinopathy. 4. Edema in the posterior calcaneus and mild retrocalcaneal bursitis. 5. Osteochondral defect in the lateral talar dome, 4.2 mm. 6. Degenerative changes in the midfoot and at the ankle. 7. No acute tendon or ligament tears identified.
== END 2025-05-17 09:26 | disposition home or self-care (01) ==
LOC: RAD 09:27
PROVIDERS: PCP Podiatrist Foot & Ankle Surgery; Visit Provider Podiatrist Foot & Ankle Surgery
DX: M76.62 Achilles tendinitis, left leg (principal); M77.8 Other enthesopathies, not elsewhere classified; S86.012A Strain of left Achilles tendon, initial encounter; X58.XXXA Exposure to other specified factors, initial encounter; R60.0 Localized edema; M19.072 Primary osteoarthritis, left ankle and foot; R93.6 Abnormal findings on diagnostic imaging of limbs; M67.874 Other specified disorders of tendon, left ankle and foot; M89.8X7 Other specified disorders of bone, ankle and foot
CPT/HCPCS: 73721

== ENCOUNTER → 2025-05-31 09:22 | Outpatient (BNVA) | payer BC, SELFPAY | PROVIDERS: PCP Podiatrist Foot & Ankle Surgery; Visit Provider Podiatrist Foot & Ankle Surgery | DX: M76.62 Achilles tendinitis, left leg (principal); M21.612 Bunion of left foot; M92.62 Juvenile osteochondrosis of tarsus, left ankle; M20.22 Hallux rigidus, left foot | CPT/HCPCS: 73630 ==

== ENCOUNTER 2025-06-17 10:40 | Day surgery (SDC) | payer BC, SELFPAY ==
[2025-06-17] VITALS (14 sets, daily range): BP systolic 91–130; BP diastolic 44–83; PULSE 54–95; RESP 16–18; TEMP 36.2–37.2; O2SAT 93–99; BMI 32.8
--- NOTE | 2025-06-17 10:21 | ANES.PREANE2 ---
Pre-Anesthetic Assessment Height/Weight: Height 5 ft 11 in Preop Diagnosis: Achilles tear Operation Date: 06/17/25 12:20 Proposed Procedures p Achilles Tendon Repair(Left) - Shaji Rooney DPM s Partial excision of left calcaneus(Left) - ARIEL Francisco Gastrocnemius Recession(Left) - Shaji Rooney DPM s Bunionectomy Lucho(Left) - Shaji Rooney DPM s Delgado Bunionectomy(Left) - Shaji Rooney DPM Was Beta Lilia taken within 24 hours: N/A Was Clonidine taken within 24 hours: N/A Social No alcohol Chews tobacco Exam alert, oriented x 3, clear to auscultation bilaterally and regular rate & rhythm Airway Submandibular: within normal limits Cervical ROM: within normal limits Mallampati: Class II Dentition: full Anesthetic Plan ASA status: 2 Anesthesia: General and Regional (specify below) Other: No prior issues with anesthesia NPO since yesterday evening Denies any cardiac or pulmonary issues METs greater than 4 Patient is still able [facility] Plan for preop nerve block with general anesthesia Medications/Allergies Home Medications ?Medication ?Instructions ?Recorded ?Confirmed ?Last Taken ?Type ibuprofen 200 mg tablet 200 mg PO Q6H PRN Pain 06/15/25 06/15/25 06/16/25 History methocarbamol 500 mg tablet 500 mg PO TID PRN muscle relaxer 06/15/25 06/17/25 Unknown History oxycodone-acetaminophen 10 mg-325 1 tab PO Q6H PRN pain 7 days #28 06/17/25 Unknown Rx mg tablet (Percocet) tabs Allergies Allergy/AdvReac Type Severity Reaction Status Date / Time No Known Allergies Allergy Verified 06/17/25 10:55 PFS Anesthesia Medical History Erectile dysfunction Microscopic hematuria Asthma Urinary hesitancy BPH loc w urin obs/LUTS Surgical History S/P TURP March 2022 History of back surgery Hx of rotator cuff surgery Hx of arthroscopic knee surgery Hx of hernia repair Family History Mother Cancer BREAST CANCER Father , at age 52 CAD (coronary artery disease) Social History Smoking and tobacco/nicotine status: current every day tobacco/nicotine user Alcohol intake: current Alcohol intake frequency: holidays/special occasions only Substance/Drug Use: unknown Adopted: No Caregiver/support person: No Lives independently: Yes Marital status: / Current occupational status: employed
--- NOTE | 2025-06-17 11:06 | W.PM.OPSUD ---
Surgery/Procedure H&P Update DATE OF PROCEDURE: June 17, 2025 DATE H&P PERFORMED: 05/31/25 H&P UPDATE INFORMATION: I have reviewed H&P completed within last 30 days, I have examined patient prior to procedure, No changes to prior documentation, H&P is in [facility] EMR on date indicated and Risks and benefits of the procedure reviewed PREOP DIAGNOSIS: Left bunion and haglunds. PLANNED PROCEDURE: Operation Date: 06/17/25 12:20 Proposed Procedures p Achilles Tendon Repair(Left) - Shaji Rooney DPM s Partial excision of left calcaneus(Left) - ARIEL Francisco Gastrocnemius Recession(Left) - ARIEL Francisco Bunionectomy Lucho(Left) - ARIEL Francisco Delgado Bunionectomy(Left) - Shaji Rooney DPM
--- NOTE | 2025-06-17 11:23 | PC.NURSE ---
popliteal and abductor canal block completed by Dr. Mccrary. Ropivacaine 1/2% used
[2025-06-17] MEDS: ceFAZolin 2,000 mg SDV 2000 MG IVP (11:45)
--- NOTE | 2025-06-17 11:50 | ANES.PROC ---
Anesthesia Procedures Procedure/Date: 06/17/25 Left popliteal nerve block and left adductor canal block for postoperative pain control Nerve Block ^: Nerve Block 1: Main Anesthesia: other (100 mcg fentanyl and 2 mg Versed) Time Out Performed: Yes Consent: requested by attending/covering physician and from patient Laterality: Left Nerve block location: popliteal Anesthesia monitors applied: pulse oximetry, EKG, BP cuff and oxygen Nerve block position: supine Anesthetic Used: ropivicaine 0.5% Amount of anesthesia used (mL): 25 Ultrasound used to: recognize landmarks Nerve Stimulator Used?: Yes Interscalene/Femoral BLK: other needle (pjunk 4inch) Injection: neg aspiration of heme Patient Tolerated Procedure: well Complications: none Additional Comments: Decadron 4 mg added to block Nerve Block 2: Main Anesthesia: other Time Out Performed: Yes Consent: requested by attending/covering physician and from patient Laterality: Left Nerve block location: adductor canal Anesthesia monitors applied: pulse oximetry, EKG, BP cuff and oxygen Nerve block position: supine Anesthetic Used: ropivicaine 0.5% Amount of anesthesia used (mL): 15 Ultrasound used to: recognize landmarks Nerve Stimulator Used?: No Interscalene/Femoral BLK: other needle (pjunk 4inch) Injection: neg aspiration of heme Patient Tolerated Procedure: well Complications: none
[2025-06-17] MEDS: tranexamic acid 1,000 mg/10mL SDV 1000 MG IV (12:00)
--- NOTE | 2025-06-17 14:04 | ECG_ITS ---
[facility] PLAXD Test Date: 2025-06-17 Pat Name: Milan Gardner Department: Room: Gender: Male [employer] Analyst: : 1965 Requested By: Yeison Masters Order Number: [id number] Reading MD: REVA NOONAN Measurements Intervals [place] Rate: 87 P: 65 NH: 176 QRS: 40 QRSD: 93 T: 41 QT: 375 QTc: 452 Interpretive Statements SINUS RHYTHM POSSIBLE RIGHT VENTRICULAR CONDUCTION DELAY [RSR (QR) IN V1/V2] No previous ECG available for comparison Electronically Signed On 06-21-2025 12:09:25 MARKETING PR INTERN by REVA NOONAN [email or web address]
--- NOTE | 2025-06-17 14:10 | PC.NURSE ---
ordered EKG. Anesthesia saw results.
--- NOTE | 2025-06-17 14:13 | W.PM.BPON ---
Date of Procedure: 09/12/23 Surgeon: Shaji Rooney DPM Exhibits Manager(s): Flower Procedure(s) performed: Left Lucho/Tyree bunionectomy, left Yvonne's resection and Achilles tendon repair. Findings of the procedure(s): Left Yvonne's and Achilles tendinosis with split longitudinal tearing. Estimated blood loss: 5 mL Specimen(s) removed: None Post-operative diagnosis: Left bunion, left Yvonne's deformity, left Achilles tendinopathy.
--- NOTE | 2025-06-17 14:14 | P.OP_ITS ---
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 CPT code 29883 2) partial excision of left calcaneus. CPT code 04144 3) left Lucho and Delgado bunionectomy. CPT code 10195 Implants: Arthrex Achilles speed bridge, 2-0 Vicryl, 3-0 Vicryl, 4-0 nylon. Texline 3 mm and 2 mm screws Lucho/Edlgado respectively. Specimens removed/disposition: No specimens removed Pathology: no pathology specimens Surgeon: Shaji Rooney DPM Automobile Mechanic: Willard Estimated blood loss: 5 mL 1 hour 30 minutes IV fluids: See intraoperative documentation Urine output: no urine output Complications: No complications. Brief History: 59 year old male patient presenting to clinic for follow up on left Achilles tendinitis. Patient would like to discuss his MRI finding of left foot/ankle. Complains of pain daily at the left Achilles as well as bunion pain that has been progressive for years he is now at the point where even wider shoes padding and spacing and anti-inflammatories no longer offer him relief he would like to discuss surgical options. Discussed MRI in length shows partial split tearing of the Achilles tendon at insertion with tendinopathy, retrocalcaneal bursitis, enthesophyte with mild edema. Patient has failed conservative treatments for insertional Achilles tendinopathy with Yvonne's deformity and bursitis also has failed conservative treatments for left bunion given the amount of time he will have off with a surgery for the Achilles he would like to combine that with a bunionectomy. I reviewed at length with the patient, the risks, potential complications, benefits, alternatives, expectations, and typical outcomes associated with the surgery. The risks and potential complications were explained in detail, including but not limited to infection, wound dehiscence or soft tissue complications, bleeding and hematoma, chronic edema, neuritis or nerve damage producing numbness or chronic pain, CRPS, failure to relieve pain or worsening pain, thick / painful / unsightly scar, limited motion / stiffness, malposition, delayed union, malunion, or nonunion, fracture, reaction to implants, anesthetic complications, venous thromboembolism, and deformity recurrence. I discussed the notion of no regrets with the patient as it pertains to complications and outcomes. The patient seemed to understand the nature of the proposed care and required convalescence. They asked appropriate questions, answered to their satisfaction. They are aware no guarantees can be made as to a satisfactory outcome and they understand there may be other possible unforeseen complications or outcomes not listed here that will be treated accordingly if they arise. There were no written or implied guarantees given to the patient. They gave informed consent to proceed. -Lucho bunionectomy, Delgado Osteotomy, Yvonne's recession all on LEFT Procedure: Under mild sedation patient was brought to the operating room and remained on the gurney in supine position. Timeout was performed. Anesthesia administered by the anesthesia service. Of note left popliteal block performed preoperatively per anesthesia along with adductor block. Well-padded pneumatic tourniquet applied to the left high calf. Left lower extremity was scrubbed, prepped and draped utilizing normal aseptic technique. Left foot and ankle examined with Esmarch bandage and tourniquet inflated to 250 mmHg. Attention was directed to the dorsal medial aspect of the left first metatarsal phalangeal joint where a linear longitudinal incision was made medial and parallel to the extensor hallucis longus tendon through skin with #15 blade with dissection carried down through subcutaneous tissue to the layer of joint capsule and periosteum utilizing a combination of sharp and blunt technique. Care was taken to retract and preserve neurovascular and tendinous structures. All bleeders were ligated and cauterized as necessary. Capsular incision was performed and medial eminence of the first metatarsal head was resected and passed from the operative field, chevron osteotomy with apex oriented distally was performed and the head of the first metatarsal was translated laterally in a more anatomically correct position and fixated utilizing standard AO technique with a Texline 3 mm screw with excellent bony apposition and compression noted and corrected alignment without violation of adjacent structures confirmed on AP oblique and lateral view with intraoperative C arm, medial shelf was transected with sagittal saw and passed from operative field and all rough edges smoothed, a Delgado osteotomy performed at the base of the proximal phalanx maintaining lateral cortical hinge this was reduced and fixated with a Texline 2 mm screw with excellent bony apposition and correction noted of the hallux valgus being rectus, no adjacent structures violated confirmed on AP oblique and lateral view of intraoperative C arm. Incision was irrigated with saline solution and closed in a layered fashion with 3-0 Vicryl, 4-0 Vicryl and 4-0 nylon. Area was covered with Coban. Drapes were removed and patient positioned as below for remaining procedures. Procedure: Anesthesia and Positioning: After obtaining informed consent, the patient was taken to the operating room and placed under general anesthesia with preoperative left popliteal block per anesthesia. The patient was positioned pro ne on the operating table with appropriate padding under the bony prominences. 2. Preparation and Drape: The left lower extremity was prepped and draped in the usual sterile fashion, ensuring that the operative site was adequately exposed. 3. Incision: A curvilinear incision was made medial to the midline over the left Achilles tendon, extending from the level of the superior aspect of the calca ramses tuberosity proximally towards the mid-calf. 4. Exposure: The subcutaneous tissue was carefully dissected to expose the Achilles tendon and the underlying Yvonne's deformity. Care was taken to p rotect the sural nerve and lesser saphenous vein. 5. Yvonne's Resection: The prominent bony exostosis (Yvonne's deformity) was identified. Using an osteotome and a rongeur, the exostosis was carefully resected, and the area was smoothed with a bone rasp. 6. Achilles Tendon Repair: Inspection of the Achilles tendon revealed mid substance tearing and mucoid degeneration with thickening and disorganized collagen fibers that were sharply debrided. The degenerated portion of the tendon was debrided back to healthy tissue. The Achilles tendon was then repaired using the Achilles SpeedBridge technique. This involved placing suture anchors at the calcaneal insertion of the Achilles tendon, passing FiberWire sutures through the tendon, and securing the tendon back to its anatomical position with a knotless bridging construct to allow for optimal tensioning and footprint coverage. 7. Closure: The wound was irrigated with sterile saline. The subcutaneous tissue and skin were then closed in layers using absorbable sutures for the subcutaneous layer and 4-0 nylon for the skin closure. A sterile dressing was applied. 8. Postoperative Care: The patient's leg was placed in a multilayer compressive posterior splint in equinus position to immobilize the ankle and allow for tendon healing.
[2025-06-17] MEDS: fentaNYL 50 mcg/mL INJ 2mL IVP (14:26)
--- NOTE | 2025-06-17 14:32 | PC.NURSE ---
left shoulder pain- talked with Dr. Mccrary and order to give Fentanyl for left shoulder pain. feels from positioning in the OR.
--- NOTE | 2025-06-17 15:30 | ANE.PACU2 ---
Inpatient post-anesthesia follow up: Airway intact: Yes Vital signs: Temperature 97.2 F Pulse Rate 70 Respiratory Rate 18 Blood Pressure 112/68 Pulse Oximetry 96 Oxygen Delivery Me thod Room Air Oxygen Flow Rate 6 Fraction of Inspir ed Oxygen Hydration adequate: Yes Nausea and vomiting: No Pain level: 3 (left shoulder pain from positioning most likely, patient struggles with chronic shoulder pain) Mental status: Baseline
== END 2025-06-17 15:30 | disposition home or self-care (01) ==
PROVIDERS: PCP Podiatrist Foot & Ankle Surgery; Visit Provider Podiatrist Foot & Ankle Surgery
PROC: (CPT 27650; principal; 2025-06-17 12:10)
PROC: (CPT 28299; 2025-06-17 12:10)
PROC: (CPT 27687; 2025-06-17 12:10)
PROC: (CPT 28296; 2025-06-17 12:10)
PROC: (CPT 28298; 2025-06-17 12:10)
DX: M76.62 Achilles tendinitis, left leg (principal); M21.612 Bunion of left foot; M20.22 Hallux rigidus, left foot; M92.62 Juvenile osteochondrosis of tarsus, left ankle; Z79.891 Long term (current) use of opiate analgesic; J45.909 Unspecified asthma, uncomplicated; F17.220 Nicotine dependence, chewing tobacco, uncomplicated
CPT/HCPCS: 28299; 27654; 28120; 64447; 64445; 73620; 76000; 93005; C1713 ×2; J0131; J0690; J1100; J2250; J2371; J2405; J2704; J3010; J3490; J7030; J9999

== ENCOUNTER → 2025-06-27 12:42 | Outpatient (BNVA) | payer BC, SELFPAY | PROVIDERS: PCP Podiatrist Foot & Ankle Surgery; Visit Provider Podiatrist Foot & Ankle Surgery | DX: M79.672 Pain in left foot (principal); Z98.890 Other specified postprocedural states | CPT/HCPCS: 73630 ==